=== PATIENT | female | born 1985 | race American Indian/Alaskan Native ===

== ENCOUNTER 2018-07-19 12:24 | Inpatient (IN) | payer BC ==
[2018-07-19] MEDS ORDERED: LACTATED RINGERS 1,000 ML IV SCH ×3 (13:00→18:00)
[2018-07-19] MEDS ORDERED: STADOL IV PRN (13:53)
[2018-07-19] MEDS ORDERED: NARCAN 0.4 MG/1 ML IV PRN ×3 (13:53→19:34)
[2018-07-19] MEDS ORDERED: MINERAL OIL PO PRN (13:53)
[2018-07-19] MEDS ORDERED: BRETHINE IVP PRN (13:53)
[2018-07-19] MEDS ORDERED: BRETHINE SUB-Q PRN (13:53)
[2018-07-19] MEDS ORDERED: PHENERGAN PO PRN ×2 (13:53→19:34)
[2018-07-19] MEDS ORDERED: ZOFRAN IV PRN ×2 (13:53→19:34)
[2018-07-19] MEDS ORDERED: SUBLIMAZE IV PRN (13:53)
--- NOTE | 2018-07-19 13:55 | History and Physical Report ---
History of Present Illness Date of examination: 07/19/18 Date of admission: 07/19/18 12:24 Chief complaint: iol for PIH History of present illness: This is a 33 yo at 39 weeks has been very non compliant. She was diagnosed last month with preeclampsia and signed out AMA on Jun. She has not been seen since then. She came for a visit today and noted to have a BP 160/112. She was sent to [facility] and [facility] for admission and evaluation. She is a patient transfer into care at 10 weeks. She has hx of low lying placneta and PIH. She has been on anti hypertensive meds for HTN. Past History Past Medical History: no pertinent history, other (endometriosis ) Past Surgical History: other (laproscopy and cystectomy ) Family/Genetic History: none Social history: single. denies: smoking, alcohol abuse, prescription drug abuse - Obstetrical History Expected Date of Delivery: 07/20/18 Actual Gestation: 39 Week(s) 6 Day(s) : 1 Para: 0 Hx # Term Pregnancies: 0 Number of Pregnancies: 0 Spontaneous Abortions: 0 Induced : 0 Number of Living Children: 0 Medications and Allergies Allergies Allergy/AdvReac Type Severity Reaction Status Date / Time No Known Allergies Allergy Verified 07/19/18 12:43 Home Medications Medication Instructions Recorded Confirmed Last Taken Type Labetalol [Normodyne TAB] 1 tab PO BID 07/01/18 07/01/18 07/01/18 18:00 History Pnv No.95/Ferrous Fum/Folic AC 1 tab PO DAILY 07/01/18 07/01/18 07/01/18 10:00 History [ Formula Tablet] Active Meds: Active Medications Lactated Ringer's (Lactated Ringers) 1,000 mls @ 125 mls/hr IV DIRECT DAVID Review of Systems All systems: negative - Vital Signs Vital signs: Vital Signs Pulse BP 102 H 159/96 07/19/18 13:41 07/19/18 13:41 Temp Pulse Resp BP Pulse Ox 97 F L 102 H 20 159/96 07/19/18 13:53 07/19/18 13:53 07/19/18 13:53 07/19/18 13:41 - Physical Exam Breasts: Positive: normal Cardiovascular: Regular rate, Normal S1 Abdomen: Positive: normal appearance, soft, normal bowel sounds. Negative: distention, tenderness, guarding Genitourinary (Female): Positive: normal external genitalia, normal perenium Vagina: Positive: normal moisture Uterus: Positive: normal size Anus/Rectum: Positive: normal perianal skin Extremities: Positive: normal Deep Tendon Reflex Grade: Normal +2 - Obstetrical FHR: category 1 Results All other labs normal. Assessment and Plan A/P IUP 39 weeks Preeclampsia iol for preeclampsia close monitor of and maternal status IVF, labs hx of low lying placenta needs US for BPP, doppler, location of placenta , EFW
[2018-07-19] MEDS ORDERED: PITOCin/NS 20 UNIT/1000ML DRIP 20 UNITS/1,000 ML BAG IV SCH ×3 (14:00→20:00)
[2018-07-19] MEDS ORDERED: PITOCin/NS 30 UNIT/500ML 30 UNITS/500 ML BAG IV SCH ×2 (14:00)
--- NOTE | 2018-07-19 14:55 | Consultation ---
History of Present Illness Consult date: 07/19/18 Requesting physician: SHIRLEY SMART Reason for consult: other (PIH, low lying placenta) History of present illness: This is a 33 yo at 39 weeks has been very non compliant and has been referred by Dr. Shirley Smart for PIH and elevated BP. Patient was previously followed by [facility] and delivery was recommended 06/20/18. She was noted to have elevated BP in her OBs office today with a BP 160/112. She has hx of low lying placneta and PIH. Past History Past Medical History: no pertinent history, other (endometriosis ) Past Surgical History: other (laproscopy and cystectomy ) Family/Genetic History: none - Obstetrical History : 1 Medications and Allergies Allergies Allergy/AdvReac Type Severity Reaction Status Date / Time No Known Allergies Allergy Verified 07/19/18 12:43 Home Medications Medication Instructions Recorded Confirmed Last Taken Type Labetalol [Normodyne TAB] 1 tab PO BID 07/01/18 07/01/18 07/01/18 18:00 History Pnv No.95/Ferrous Fum/Folic AC 1 tab PO DAILY 07/01/18 07/01/18 07/01/18 10:00 History [ Formula Tablet] Active Meds: Active Medications Butorphanol Tartrate (Stadol) 2 mg IV Q2H PRN PRN Reason: Pain , Severe (7-10) Ephedrine Sulfate (Ephedrine Sulfate) 10 mg IV Q2M PRN PRN Reason: Hypotension Fentanyl (Sublimaze) 100 mcg IV Q2H PRN PRN Reason: Labor Pain Lactated Ringer's (Lactated Ringers) 1,000 mls @ 125 mls/hr IV DIRECT DAVID Oxytocin/Sodium Chloride (Pitocin/Ns 20 Unit/1000ml Drip) 20 units in 1,000 mls @ 125 mls/hr IV DIRECT DAVID Oxytocin/Sodium Chloride (Pitocin/Ns 30 Unit/500ml) 30 units in 500 mls @ 1 mls/hr IV TITR DAVID; Protocol Oxytocin/Sodium Chloride (Pitocin/Ns 30 Unit/500ml) 30 units in 500 mls @ 0 mls/hr IV TITR DAVID; Protocol Magnesium Sulfate (Magnesium Sulfate 40gm/1000ml) 40 gm in 1,000 mls @ 50 mls/hr IV DIRECT DAVID Magnesium Sulfate (Magnesium Sulfate 4gm/100ml) 4 gm in 100 mls @ 300 mls/hr IV ONCE ONE Stop: 07/19/18 15:49 Labetalol HCl (Normodyne) 200 mg PO BID DAVID Lidocaine (Xylocaine 2%) 20 ml INFILTRATI ONCE ONE Stop: 07/19/18 15:01 Mineral Oil (Mineral Oil) 30 ml PO QHS PRN PRN Reason: Constipation Naloxone HCl (Narcan 0.4 Mg/1 Ml) 0.1 mg IV Q2MIN PRN PRN Reason: Res Rate </= 8 or 02 SAT < 92% Ondansetron HCl (Zofran) 4 mg IV Q8H PRN PRN Reason: Nausea And Vomiting Promethazine HCl (Phenergan) 25 mg PO Q6H PRN PRN Reason: Nausea And Vomiting Terbutaline Sulfate (Brethine) 0.25 mg SUB-Q ONCE PRN PRN Reason: Hyperstimulation/Hypertonicity Terbutaline Sulfate (Brethine) 0.25 mg IVP ONCE PRN PRN Reason: Hyperstimulation/Hypertonicity Review of Systems Eyes: deferred Ears, nose, mouth and throat: deferred (denies chest pain) Respiratory: other (denies shortness of breath) Breasts: deferred Gastrointestinal: other (denies abdominal pain, cramping/contractions) Genitourinary: other (denies leakage of fluid) - Vital Signs Vital signs: Vital Signs Pulse BP 102 H 159/96 07/19/18 13:41 07/19/18 13:41 Temp Pulse Resp BP Pulse Ox 97 F L 96 H 20 151/89 07/19/18 13:53 07/19/18 14:40 07/19/18 13:53 07/19/18 14:40 - Physical Exam Breasts: Positive: deferred Cardiovascular: Regular rate Lungs: Positive: Normal air movement Abdomen: Positive: normal appearance, other (gravid) Results All other labs normal. Assessment and Plan Assessment 39 weeks, SIUP Noncompliant with previous care and recommendations Hx PIH Elevated BP 150s/80s-90s Previous low lying placenta Recommendations We recommend delivery after ultrasound evaluation If placenta no longer low lying proceed with vaginal delivery unless otherwise contraindicated as earlier discussed with Dr. Pichardo 24 hour urine to evaluate for preeclampsia Treat with Magnesium Sulfate IV therapy as indicated for s/s of preeclampsia No further follow indicated for [facility]. Thank you for giving us the opportunity to participate in the care of this patient. For further questions or concerns please contact NOLAN scanlon MD. Thank you.
[2018-07-19] MEDS ORDERED: XYLOCAINE 2% INFILTRATI ONE (15:00)
[2018-07-19] MEDS ORDERED: MAGNESIUM SULFATE 4GM/100ML 4 GM/100 ML BAG IV ONE ×2 (15:30→19:39)
[2018-07-19 15:36] LABS: Hematocrit 35.7 % (30.3-42.9); Hemoglobin 11.8 gm/dl (10.1-14.3); Mean Corpuscular HGB Conc 33 % (30-34); Mean Corpuscular Volume 91 fl (79-97); Platelet Count 328 K/mm3 (140-440); Red Blood Count 3.94 M/mm3 (3.65-5.03); Red Cell Distribution Width 14.8 % (13.2-15.2)
[2018-07-19 15:57] LABS: Alanine Aminotransferase 34 units/L (7-56)
[2018-07-19 16:06] LABS: Bilirubin,Urine NEG (Negative); Blood,Urine NEG (Negative); Color,Urine Yellow (Yellow); Mucus,Urine FEW /HPF
[2018-07-19 16:21] LABS: Hematocrit 34.7 % (30.3-42.9); Mean Corpuscular HGB Conc 35 % (30-34); Mean Corpuscular Volume 90 fl (79-97); Platelet Count 331 K/mm3 (140-440); Red Blood Count 3.86 M/mm3 (3.65-5.03); Red Cell Distribution Width 15.2 % (13.2-15.2)
[2018-07-19] MEDS ORDERED: APRESOLINE IV PRN (16:35)
[2018-07-19] MEDS ORDERED: BICITRA PO ONE (17:05)
[2018-07-19] MEDS ORDERED: PEPCID IV ONE ×2 (17:05→17:21)
[2018-07-19] MEDS ORDERED: REGLAN IV ONE (17:05)
--- NOTE | 2018-07-19 17:05 | Event Note ---
Date: 07/19/18 Patient was noted to have tachy in 160-170s. Patient BP despite medication is 170/100s. It was decided after recommendations by myself to proceed with primary csec secondary to NRFHT and Preeclampsia uncontrolled. We discused bleeding infection, damage to pelvic and non pelvic organs, risk of blood clots, hysterectomy and . patient and both agree to proceed with csec .
[2018-07-19 17:06] LABS: Uric Acid 3.2 mg/dL (3.5-7.6)
--- NOTE | 2018-07-19 17:07 | Anesthesia Consultation ---
Anesthesia Consult and Med Hx Date of service: 07/19/18 - Airway Anesthetic Teeth Evaluation: Good ROM Head & Neck: Adequate Mental/Hyoid Distance: Adequate Mallampati Class: Class II Intubation Access Assessment: Probably Good - Pulmonary Exam CTA: Yes - Cardiac Exam Cardiac Exam: RRR - Pre-Operative Health Status ASA Pre-Surgery Classification: ASA3 Proposed Anesthetic Plan: Spinal Nerve Block: QL for post op pain control - Pulmonary Hx Asthma: No COPD: No Hx Pneumonia: No - Cardiovascular System Hx Hypertension: Yes (preclamptic) - Central Nervous System Hx Seizures: No Hx Psychiatric Problems: No - Gastrointestinal Hx Gastroesophageal Reflux Disease: No - Endocrine Hx Renal Disease: No Hx End Stage Renal Disease: No Hx Hypothyroidism: No Hx Hyperthyroidism: No - Hematic Hx Anemia: Yes Hx Sickle Cell Disease: No - Other Systems Hx Alcohol Use: No - Additional Comments Anesthesia Medical History Comments: pt preclamptic and will need a c sction. ate at 12 noon gastric scan reveals full stomach with frosted glass presentaion. Anes plan is spinal with normal platelet count. with delayed gastropuresis, waiting will not change risk benefit for needed, urgent, delivery.
[2018-07-19] MEDS ORDERED: BICITRA ONE (17:20)
--- NOTE | 2018-07-19 17:42 | Ultrasound Report ---
FINAL REPORT EXAM: US OB BPP WO NON-STRESS HISTORY: elevated b/p TECHNIQUE: Ultrasound biophysical profile PRIORS: None. FINDINGS: Single live intrauterine gestation is present with heart rate of 178 beats per minute Biophysical profile was performed respiratory motion 2 Body movement 2 tone 2 Amniotic fluid volume 2 Total 02/13 Impression Normal biophysical profile 02/13
--- NOTE | 2018-07-19 17:49 | Ultrasound Report ---
FINAL REPORT EXAM: US OB FOLLOW UP HISTORY: elevated b/p TECHNIQUE: Ultrasound obstetrical transabdominal PRIORS: Correlated with prior exam July 02, 2018 FINDINGS: Single live intrauterine gestation present cephalic position Placenta is right and lateral and grade 2 Amniotic fluid is within normal limits amniotic fluid index 11.5 centimeters cardiac activity is present with heart rate of 178 beats per minute Cervical length 3.2 centimeters biometric measurements were obtained Biparietal diameter 30 weeks 2 days Head circumference 39 weeks 6 days Abdominal circumference 41 weeks 2 days Femur length 35 weeks 6 days Based on today's exam estimated gestational age is 38 weeks 6 days with estimated date of delivery [facility] 2018 Estimated weight today is 3853 grams, 8 pounds 8 ounces. 71 percentile for dates IMPRESSION: Single live intrauterine gestation estimated at 38 weeks 6 days
[2018-07-19] MEDS ORDERED: NACL 0.9% IR ONE (17:55)
[2018-07-19] MEDS ORDERED: WATER FOR IRRIG STERILE IR ONE (17:55)
[2018-07-19] MEDS ORDERED: SENOKOT PO PRN (19:02)
[2018-07-19] MEDS ORDERED: PHENERGAN PR PRN ×2 (19:02→19:34)
[2018-07-19] MEDS ORDERED: ANUCORT-HC PR PRN (19:02)
[2018-07-19] MEDS ORDERED: TORADOL IV PRN ×2 (19:02)
[2018-07-19] MEDS ORDERED: LANSINOH TP PRN (19:02)
[2018-07-19] MEDS ORDERED: MYLICON PO PRN (19:02)
[2018-07-19] MEDS ORDERED: TUCKS PAD TP PRN (19:02)
[2018-07-19] MEDS ORDERED: MORPHINE IV PRN ×2 (19:02)
--- NOTE | 2018-07-19 19:08 | Procedure Note ---
OB Delivery Note - Delivery Date of Delivery: 07/19/18 Surgeon: FOREST FINNEGAN Estimated blood loss: other (600cc) - Section Preop diagnosis: nonreassuring FHR tracing, other (severe preeclampsia ) section procedure: section Disposition: PACU Complications: none - Infant A at 1 minute: 8 at 5 minutes: 9 Gender: Female (9 pounds 3 oz)
--- NOTE | 2018-07-19 19:11 | Operative Report ---
Operative Report Operative Report: DATE OF OPERATION: 07/19/18 PREOPERATIVE DIAGNOSES: 1. Intrauterine gestation at 39+6 weeks 2. Severe Preeclampsia 3. NRFHT with tachycardia POSTOPERATIVE DIAGNOSES: 1-3 shahana OPERATION PERFORMED: Primary low transverse section. SURGEON: Shirley Smart MD ANESTHESIA: Spinal COMPLICATIONS: None. ESTIMATED BLOOD LOSS: 600 mL. DRAINS: Christensen catheter to the bladder. SPECIMENS TO PATHOLOGY: Cord blood for routine testing. OPERATIVE FINDINGS: A viable female with Apgars of 8 and 9 and birthweight of 9 pounds 3 ounces was delivered from a cephalic presentation, persistent occiput posterior position. The cord contained 3 vessels. There was normal anterior fundal placenta. The amniotic fluid was clear. The uterus, fallopian tubes and ovaries were normal. DESCRIPTION OF OPERATION: The patient was brought to the operating suite in stable condition with epidural anesthesia on board and an indwelling catheter in place in the bladder. The patient was placed supine on the operating room table and rolled to her left side with a wedge. The abdomen was prepped and draped in standard fashion for section. After testing with forceps to assure an adequate anesthetic level, the surgery was commenced. We had counseled the patient extensively regarding the risks of the surgery including but not limited to stroke, embolus, phlebitis, pain, infection, hemorrhage, as well as injury to the and the internal organs such as the bowel, bladder, blood vessels, nerves, kidneys, ureters and pelvic organs. The patient was aware of the postoperative morbidity issues and recovery timeframes. The patient was aware she can form adhesions, which can result in obstruction of loop of bowel or ureter or chronic pain. She was aware that should she have hemorrhage and require blood transfusion, there was a small chance for exposure to hepatitis or HIV disease. With the scalpel, a Pfannenstiel skin incision was made. Dissection was carried down sharply through the subcutaneous tissues and fascia in a transverse plane with the scalpel, electrocautery and curved Baker scissors. The fascia was sharply freed up superiorly and inferiorly from the underlying rectus muscles, which were bluntly and sharply divided. The peritoneum was entered carefully in a clear space with a curved hemostat. The peritoneal incision was then extended vertically with Metzenbaum scissors. A retractor and bladder blade were placed. A bladder flap was created by incising transversely through the peritoneum and vesicouterine fold and then bluntly dissecting the bladder distally. With the scalpel, a low transverse hysterotomy was commenced. The serosa and myometrium were scored with the scalpel. The uterine cavity was actually entered bluntly with a curved hemostat. The uterine incision was then extended laterally with the book sewing machine operator's fingers. An intrauterine hand was placed and the head of the infant was brought up out of the pelvis into the uterine incision. With fundal pressure, he was delivered without difficulty. The nasopharynx and oropharynx were suctioned. The cord was doubly clamped and transected. The infant was then handed off to the nursery personnel. Apgars were good at 8 and 9. A cord pH was obtained, which subsequently revealed a normal value. Further cord blood was collected for routine testing. Intravenous Pitocin and antibiotics were administered. The placenta was manually removed. The uterine cavity was then curetted with a dry sponge and freed of the remaining membranes. The edges of the uterine incision were grasped with Turner clamps. With the massage and the Pitocin, the uterus began to firm up normally. The uterine incision was then closed in 2 layers of 0 Vicryl sutures. The first suture was placed to the endometrium and myometrium. The second suture was placed through the endopelvic fascia and also reincorporated the bladder flap peritoneum. Peritoneal lavage was then performed. The pelvis and gutters were irrigated and suctioned and cleared of all blood and clots and amniotic fluid. The uterine incision was reinspected to assure hemostasis. The uterus, tubes and ovaries were inspected and were normal. Once we were satisfied with the hemostasis, attention was turned to closure of the abdominal incision. The peritoneum, muscles and fascia were closed in layers using 0-Vicryl sutures. The subcutaneous tissue was closed with 3-0 plain sutures. The skin was closed with a subcuticular suture of 4-0 Vicryl followed by benzoin, Steri-Strips and a Telfa dressing. The patient was moved to the recovery room in stable condition with the Christensen catheter draining clear urine. Instruments, sponge and needle counts were reported as correct. Estimated blood loss was 600 mL. There were no complications.
[2018-07-19] MEDS ORDERED: D5LR 1,000 ML IV SCH (20:00)
[2018-07-19] MEDS ORDERED: SODIUM CHLORIDE FLUSH SYRINGE 10 ML IV SCH (20:00)
[2018-07-19] MEDS ORDERED: fentaNYL-BUPIV 2 MCG/ML-0.125% 200 MCG/100 ML BAG EPIDURAL SCH (20:00)
[2018-07-19] MEDS: MAGNESIUM SULFATE 40GM/1000ML 40 GM/1,000 ML BAG IV SCH (20:17)
[2018-07-19] MEDS: NORMODYNE PO SCH (21:03)
[2018-07-19] MEDS: NORCO 5/325 PO PRN (21:09)
[2018-07-20] MEDS ORDERED: BOOSTRIX IM ONE (06:00)
--- NOTE | 2018-07-20 07:39 | Progress Note ---
Assessment and Plan A/P POD1 severe pree on mag last level within normal range continue mag infusion for 24 hrs then transfer to [facility] continue labetolol 200 mg po bid Subjective - Subjective Date of service: 07/20/18 Principal diagnosis: primary csec and severe preeclampsia Interval history: This is a 33 yo at 39 weeks has been very non compliant. She was diagnosed last month with preeclampsia and signed out AMA on Jun. She has not been seen since then. She came for a visit today and noted to have a BP 160/112. She was sent to L and d for admission and evaluation. She is a patient transfer into care at 10 weeks. She has hx of low lying placneta and PIH. She has been on anti hypertensive meds for HTN. Patient reports: appetite normal, voiding normally, pain well controlled Iva: doing well Objective - Vital Signs Latest vital signs: Vital Signs Temp Pulse Resp BP BP Pulse Ox 07/20/18 07:34 93 H 147/82 07/20/18 07:32 93 H 98 07/20/18 07:30 94 H 88 07/20/18 07:27 100 H 98 07/20/18 07:22 89 97 07/20/18 07:19 91 H 146/80 07/20/18 07:17 91 H 97 07/20/18 07:12 95 H 99 07/20/18 07:07 92 H 99 07/20/18 07:04 93 H 140/80 07/20/18 07:02 92 H 99 07/20/18 06:57 92 H 99 07/20/18 06:52 93 H 99 07/20/18 06:49 90 139/79 07/20/18 06:47 93 H 99 07/20/18 06:42 91 H 99 07/20/18 06:37 98 H 97 07/20/18 06:34 100 H 140/82 94 07/20/18 06:32 97 H 97 07/20/18 06:27 92 H 97 07/20/18 06:22 95 H 96 07/20/18 06:19 95 H 137/84 94 07/20/18 06:17 95 H 97 07/20/18 06:12 96 H 98 07/20/18 06:07 97 H 97 07/20/18 06:04 94 H 137/82 137/82 07/20/18 06:03 99 H 85 07/20/18 06:02 96 H 97 07/20/18 05:57 92 H 95 07/20/18 05:52 91 H 95 07/20/18 05:49 90 130/75 07/20/18 05:47 94 H 95 07/20/18 05:42 91 H 95 07/20/18 05:37 91 H 96 07/20/18 05:34 90 130/76 07/20/18 05:32 92 H 96 07/20/18 05:27 91 H 96 07/20/18 05:22 92 H 96 07/20/18 05:19 90 138/82 94 07/20/18 05:17 91 H 96 07/20/18 05:12 93 H 96 07/20/18 05:07 91 H 96 07/20/18 05:04 96 H 138/81 138/81 07/20/18 05:02 89 96 07/20/18 04:57 91 H 97 07/20/18 04:52 88 96 07/20/18 04:49 90 141/79 07/20/18 04:47 90 98 07/20/18 04:42 93 H 98 07/20/18 04:37 97 H 98 07/20/18 04:34 100 H 155/81 91 07/20/18 04:32 98 H 97 07/20/18 04:27 98 H 98 07/20/18 04:23 71 94 07/20/18 04:22 100 H 98 07/20/18 04:19 95 H 141/74 07/20/18 04:16 92 H 98 07/20/18 04:11 95 H 97 07/20/18 04:06 93 H 98 07/20/18 04:04 94 H 143/81 143/81 07/20/18 04:01 95 H 99 07/20/18 03:56 96 H 98 07/20/18 03:51 94 H 98 07/20/18 03:49 98 H 138/80 07/20/18 03:46 94 H 96 07/20/18 03:41 96 H 97 07/20/18 03:36 96 H 96 07/20/18 03:34 97 H 136/81 07/20/18 03:31 95 H 97 07/20/18 03:26 90 95 07/20/18 03:21 95 H 95 07/20/18 03:19 91 H 139/85 94 07/20/18 03:16 94 H 96 07/20/18 03:11 94 H 96 07/20/18 03:06 96 H 95 07/20/18 03:04 95 H 139/87 139/87 07/20/18 03:01 95 H 96 07/20/18 02:56 94 H 98 07/20/18 02:51 95 H 98 07/20/18 02:49 94 H 136/81 07/20/18 02:46 93 H 99 07/20/18 02:41 96 H 99 07/20/18 02:36 95 H 98 07/20/18 02:34 94 H 134/78 07/20/18 02:31 94 H 98 07/20/18 02:26 92 H 99 07/20/18 02:21 93 H 99 07/20/18 02:19 93 H 139/81 07/20/18 02:16 92 H 98 07/20/18 02:11 92 H 99 07/20/18 02:06 95 H 99 07/20/18 02:04 96 H 138/76 138/76 07/20/18 02:01 95 H 98 07/20/18 01:56 97 H 97 07/20/18 01:51 97 H 98 07/20/18 01:49 96 H 138/77 07/20/18 01:46 99 H 97 07/20/18 01:41 97 H 97 07/20/18 01:36 98 H 97 07/20/18 01:34 96 H 133/78 07/20/18 01:31 98 H 97 07/20/18 01:26 99 H 97 07/20/18 01:21 99 H 97 07/20/18 01:19 98 H 133/84 07/20/18 01:16 93 H 99 07/20/18 01:11 97 H 97 07/20/18 01:06 95 H 97 07/20/18 01:04 97 H 132/79 132/79 07/20/18 01:01 99 H 97 07/20/18 00:56 100 H 98 07/20/18 00:51 100 H 97 07/20/18 00:49 100 H 138/86 07/20/18 00:46 98 H 98 07/20/18 00:41 101 H 98 07/20/18 00:36 101 H 97 07/20/18 00:34 99 H 131/75 131/75 07/20/18 00:31 100 H 97 07/20/18 00:26 100 H 98 07/20/18 00:21 99 H 98 07/20/18 00:19 94 H 140/76 07/20/18 00:16 94 H 97 07/20/18 00:11 97 H 97 07/20/18 00:06 94 H 97 07/20/18 00:04 98.8 F 95 H 136/75 136/75 07/20/18 00:01 99 H 97 07/19/18 23:56 96 H 97 07/19/18 23:51 96 H 97 07/19/18 23:49 96 H 136/73 07/19/18 23:46 98 H 98 07/19/18 23:41 97 H 97 07/19/18 23:36 98 H 97 07/19/18 23:34 97 H 131/72 131/72 07/19/18 23:31 99 H 96 07/19/18 23:26 99 H 97 07/19/18 23:21 99 H 96 07/19/18 23:19 102 H 131/72 07/19/18 23:16 100 H 96 07/19/18 23:11 97 H 96 07/19/18 23:06 94 H 96 07/19/18 23:04 97 H 139/76 07/19/18 23:01 95 H 99 07/19/18 22:56 98 H 99 07/19/18 22:51 96 H 98 07/19/18 22:49 95 H 136/78 07/19/18 22:46 94 H 98 07/19/18 22:41 96 H 99 07/19/18 22:36 96 H 98 07/19/18 22:34 94 H 137/79 07/19/18 22:31 95 H 99 07/19/18 22:26 93 H 98 07/19/18 22:21 95 H 98 07/19/18 22:19 96 H 148/84 148/84 07/19/18 22:16 94 H 98 07/19/18 22:11 98 H 98 07/19/18 22:06 102 H 97 07/19/18 22:04 100 H 149/83 149/83 07/19/18 22:01 101 H 99 07/19/18 21:56 96 H 99 07/19/18 21:51 99 H 99 07/19/18 21:49 96 H 157/89 157/89 07/19/18 21:46 101 H 99 07/19/18 21:41 99 H 100 07/19/18 21:36 94 H 100 07/19/18 21:34 90 154/95 154/95 07/19/18 21:31 99 H 100 07/19/18 21:26 95 H 100 07/19/18 21:21 92 H 100 07/19/18 21:19 122 H 158/98 158/98 07/19/18 21:16 100 H 100 07/19/18 21:11 96 H 100 07/19/18 21:06 98 H 100 07/19/18 21:04 96 H 150/93 150/93 07/19/18 21:03 96 H 150/93 07/19/18 21:01 96 H 100 07/19/18 20:56 98 H 100 07/19/18 20:49 92 H 150/93 07/19/18 20:34 91 H 156/99 07/19/18 20:16 98.6 F 94 H 22 145/93 99 07/19/18 20:01 97 H 15 143/89 98 07/19/18 19:46 98 H 12 133/88 99 07/19/18 19:31 95 H 13 138/83 99 07/19/18 19:26 101 H 17 146/76 99 07/19/18 19:21 96 H 20 122/68 100 07/19/18 19:16 98.6 F 98 H 19 128/59 100 07/19/18 17:27 97 H 159/94 07/19/18 17:11 105 H 184/104 07/19/18 17:00 171/106 07/19/18 16:55 93 H 171/106 07/19/18 16:40 96 H 176/111 07/19/18 16:26 96 H 175/103 07/19/18 15:56 93 H 159/102 07/19/18 15:41 95 H 141/89 07/19/18 15:26 97 H 144/79 07/19/18 15:10 99 H 151/87 07/19/18 14:56 101 H 156/93 07/19/18 14:40 96 H 151/89 07/19/18 14:25 97 H 151/83 07/19/18 14:10 97 H 150/85 07/19/18 13:56 103 H 156/91 07/19/18 13:53 97 F L 102 H 20 07/19/18 13:41 102 H 159/96 Intake and Output 07/19/18 07/19/18 07/20/18 15:59 23:59 07:59 Intake Total 175 Output Total 600 2200 Balance -425 -2200 Intake: IV 175 Output: Urine 600 2200 Void 500 2200 Other: Total, Output Amount 500 600 Weight 86.183 kg Estimated Blood Loss 600 - Exam Breasts: Present: normal Cardiovascular: Present: Regular rate, Normal S1 Lungs: Present: Clear to auscultation, Normal air movement Abdomen: Present: normal appearance, soft, normal bowel sounds. Absent: distention, tenderness, guarding Vulva: both: normal Uterus: Present: normal, firm, fundal height below umbilicus. Absent: bogginess, tenderness Extremities: Present: normal Deep Tendon Reflex Grade: Normal +2 Incision: Present: normal - Labs Labs: Abnormal lab results 07/19/18 07/19/18 07/19/18 Range/Units 15:00 15:15 15:15 MCHC 35 H (30-34) % Creatinine 0.4 L (0.7-1.2) mg/dL Uric Acid 3.2 L (3.5-7.6) mg/dL Magnesium (1.7-2.3) mg/dL AST 47 H (5-40) units/L Lactate Dehydrogenase 252 H (91-180) units/L U Epithel Cells (Auto) 23.0 H (0-13.0) /HPF 07/20/18 Range/Units 01:13 MCHC (30-34) % Creatinine (0.7-1.2) mg/dL Uric Acid (3.5-7.6) mg/dL Magnesium 4.10 H (1.7-2.3) mg/dL AST (5-40) units/L Lactate Dehydrogenase (91-180) units/L U Epithel Cells (Auto) (0-13.0) /HPF
[2018-07-20 08:29] LABS: Hematocrit 36.1 % (30.3-42.9); Hemoglobin 11.8 gm/dl (10.1-14.3)
[2018-07-20] MEDS: NORCO 5/325 PO PRN ×2 (08:51→16:33)
[2018-07-20] MEDS: NORMODYNE PO SCH ×3 (09:30→22:56)
[2018-07-20] MEDS: FEOSOL PO SCH (09:31)
[2018-07-20] MEDS: PRENATAL VITAMIN PO SCH (09:32)
[2018-07-20] MEDS: PERCOCET 5/325 PO PRN ×2 (13:11→20:33)
[2018-07-20] MEDS: MAGNESIUM SULFATE 40GM/1000ML 40 GM/1,000 ML BAG IV SCH (16:32)
[2018-07-20] MEDS ORDERED: M-M-R II VACCINE SUB-Q ONE (19:04)
[2018-07-21] MEDS: IBUPROFEN PO PRN ×4 (00:26→22:07)
[2018-07-21] MEDS: PERCOCET 5/325 PO PRN ×4 (02:29→22:07)
[2018-07-21] MEDS: NORCO 5/325 PO PRN (06:49)
--- NOTE | 2018-07-21 07:01 | Progress Note ---
Assessment and Plan A/P POD2 severe pree s/p on mag- d/c last night continue labetolol 200 mg po bid VSS BP normal condiser d/c home tomorrow Subjective - Subjective Date of service: 07/21/18 Principal diagnosis: primary csec and severe preeclampsia Interval history: This is a 33 yo at 39 weeks has been very non compliant. She was diagnosed last month with preeclampsia and signed out AMA on Jun. She has not been seen since then. She came for a visit today and noted to have a BP 160/112. She was sent to [facility] for admission and evaluation. She is a patient transfer into care at 10 weeks. She has hx of low lying placneta and PIH. She has been on anti hypertensive meds for HTN. Patient reports: appetite normal, voiding normally, pain well controlled, flatus, ambulating normally : doing well Objective - Vital Signs Latest vital signs: Vital Signs Temp Pulse Resp BP BP Pulse Ox 07/21/18 06:49 16 07/21/18 02:29 22 07/21/18 00:26 18 07/20/18 23:30 98.7 F 73 16 130/74 07/20/18 22:56 82 138/86 07/20/18 20:33 22 07/20/18 19:22 95 H 150/88 07/20/18 19:05 93 H 120/82 07/20/18 19:04 96.9 F L 93 H 18 120/82 07/20/18 18:21 88 122/76 07/20/18 17:21 90 139/77 07/20/18 16:33 16 07/20/18 16:28 97.9 F 16 07/20/18 16:19 96 H 129/79 07/20/18 16:04 96 H 134/89 07/20/18 15:49 93 H 133/77 07/20/18 15:34 97 H 141/82 07/20/18 15:19 93 H 134/93 07/20/18 15:04 92 H 135/103 07/20/18 14:49 93 H 134/81 07/20/18 14:34 93 H 130/71 07/20/18 14:19 96 H 135/80 07/20/18 14:04 92 H 137/76 07/20/18 13:49 96 H 142/78 07/20/18 13:34 92 H 140/83 07/20/18 13:19 93 H 134/84 07/20/18 13:04 95 H 124/79 07/20/18 12:49 93 H 155/86 07/20/18 12:34 93 H 116/55 07/20/18 12:19 90 116/71 07/20/18 12:04 87 111/56 07/20/18 11:49 89 109/57 07/20/18 11:34 93 H 112/58 07/20/18 11:19 93 H 117/72 07/20/18 11:04 94 H 124/67 07/20/18 10:49 86 120/69 07/20/18 10:34 89 140/81 07/20/18 10:19 90 138/85 07/20/18 10:04 97 H 147/92 07/20/18 09:51 16 07/20/18 09:49 97 H 162/98 07/20/18 09:44 98.5 F 94 H 16 153/97 07/20/18 09:34 94 H 153/97 07/20/18 09:30 151/86 07/20/18 09:19 96 H 151/86 07/20/18 09:04 149/86 07/20/18 08:49 94 H 146/83 07/20/18 08:34 92 H 124/62 07/20/18 08:19 93 H 142/84 07/20/18 08:07 97 H 98 07/20/18 08:04 91 H 142/83 07/20/18 08:02 94 H 98 07/20/18 07:57 94 H 98 07/20/18 07:52 90 98 07/20/18 07:49 92 H 149/89 07/20/18 07:47 91 H 99 07/20/18 07:42 97 H 96 07/20/18 07:37 92 H 98 07/20/18 07:34 93 H 147/82 07/20/18 07:32 93 H 98 07/20/18 07:30 94 H 88 07/20/18 07:27 100 H 98 07/20/18 07:22 89 97 07/20/18 07:19 91 H 146/80 07/20/18 07:17 91 H 97 07/20/18 07:12 95 H 99 07/20/18 07:07 92 H 99 07/20/18 07:04 93 H 140/80 07/20/18 07:02 92 H 99 Intake and Output 07/20/18 07/20/18 07/21/18 15:59 23:59 07:59 Intake Total 1501.667 Output Total 2800 400 Balance -1298.333 -400 Intake: IV 1261.667 MAGNESIUM SULFATE 40GM/ 1161.667 1000ML 40 gm In 1,000 ml @ 2 GM/HR 50 mls/hr IV DIRECT DAVID Rx#:[id number] MAGNESIUM SULFATE 4GM/ 100 100ML 4 gm In 100 ml @ 300 mls/hr IV ONCE ONE Rx #:[id number] Oral 240 Output: Urine 2800 400 Void 2800 400 Other: Total, Intake Amount 240 Total, Output Amount 800 400 # Voids Void 1 - Exam Breasts: Present: normal Cardiovascular: Present: Regular rate, Normal S1 Lungs: Present: Clear to auscultation, Normal air movement Abdomen: Present: normal appearance, soft, normal bowel sounds. Absent: distention, tenderness, guarding Vulva: both: normal Uterus: Present: normal, firm, fundal height below umbilicus. Absent: bogginess, tenderness Extremities: Present: normal Deep Tendon Reflex Grade: Normal +2 Incision: Present: normal, dry, dressed - Labs Labs: Abnormal lab results 07/20/18 Range/Units 07:28 Magnesium 4.80 H (1.7-2.3) mg/dL
[2018-07-21] MEDS: FEOSOL PO SCH (10:26)
[2018-07-21] MEDS: PRENATAL VITAMIN PO SCH (10:26)
[2018-07-21] MEDS: NORMODYNE PO SCH ×2 (10:36→21:29)
[2018-07-21] MEDS: MILK OF MAGNESIA PO PRN (21:34)
[2018-07-22] MEDS: PERCOCET 5/325 PO PRN ×3 (07:50→21:53)
[2018-07-22] MEDS: IBUPROFEN PO PRN ×3 (07:52→21:54)
[2018-07-22] MEDS: FEOSOL PO SCH ×2 (07:53→10:17)
--- NOTE | 2018-07-22 08:11 | Progress Note ---
Assessment and Plan - Patient Problems (1) Mild preeclampsia Current Visit: No Status: Acute Plan to address problem: will increase labetalol dose to 400mg bid postpone discharge until tomorrow Subjective - Subjective Date of service: 07/22/18 Principal diagnosis: primary csec and severe preeclampsia Interval history: Patient has had labile blood pressures. She reports not being able to have a bowel movement. She is tolerating a regular diet. Infant scheduled to be discharged tomorrow. Patient reports: appetite normal, voiding normally, no bowel movement Objective - Vital Signs Latest vital signs: Vital Signs Temp Pulse Resp BP BP Pulse Ox 07/22/18 05:25 98.0 F 81 18 154/84 93 07/22/18 01:17 98.2 F 89 18 126/70 99 07/21/18 21:29 104 H 167/89 07/21/18 20:57 98.6 F 108 H 20 167/89 97 07/21/18 16:38 98.2 F 92 H 18 167/61 07/21/18 10:36 139/91 Intake and Output 07/21/18 07/22/18 07/22/18 22:59 06:59 14:59 Intake Total 480 480 Balance 480 480 Intake: Oral 480 120 Intake, Free Water 360 Other: Total, Intake Amount 480 120 # Voids Void 2 - Exam Abdomen: Present: soft, distention (mild)
[2018-07-22] MEDS ORDERED: DULCOLAX PR PRN (10:00)
[2018-07-22] MEDS: NORMODYNE PO SCH ×2 (10:16→21:46)
[2018-07-22] MEDS: PRENATAL VITAMIN PO SCH (10:17)
[2018-07-22] MEDS: MILK OF MAGNESIA PO PRN (14:43)
[2018-07-22] MEDS ORDERED: MINERAL OIL ONE (15:18)
[2018-07-23] MEDS: PERCOCET 5/325 PO PRN ×2 (03:50→10:33)
[2018-07-23] MEDS: IBUPROFEN PO PRN ×2 (03:51→10:33)
--- NOTE | 2018-07-23 08:57 | Progress Note ---
Assessment and Plan A/P POD4 severe pree s/p on mag- d/c last night continue labetolol 200 mg po bid VSS BP normal BP 130-140/80s with increase in labetolol d/c home with f/u in 1 week for BP check Subjective - Subjective Date of service: 07/23/18 Principal diagnosis: primary csec and severe preeclampsia Interval history: This is a 33 yo at 39 weeks has been very non compliant. She was diagnosed last month with preeclampsia and signed out AMA on Jun. She has not been seen since then. She came for a visit today and noted to have a BP 160/112. She was sent to [facility] for admission and evaluation. She is a patient transfer into care at 10 weeks. She has hx of low lying placneta and PIH. She has been on anti hypertensive meds for HTN. Patient reports: appetite normal, voiding normally, pain well controlled, flatus, ambulating normally : doing well Objective - Vital Signs Latest vital signs: Vital Signs Temp Pulse Resp BP BP Pulse Ox 07/23/18 07:38 97.5 F L 85 16 138/87 99 07/23/18 03:51 18 07/23/18 03:50 18 07/23/18 03:41 97.7 F 84 16 138/89 07/23/18 00:25 98.3 F 89 18 143/74 07/22/18 22:54 20 07/22/18 22:53 20 07/22/18 22:10 98.2 F 92 H 18 146/87 07/22/18 21:54 20 07/22/18 21:53 20 07/22/18 21:46 86 130/80 07/22/18 15:35 97.9 F 91 H 18 137/78 07/22/18 12:38 94 H 18 141/95 07/22/18 10:16 129/80 Intake and Output 07/22/18 07/23/18 07/23/18 23:59 07:59 15:59 Intake Total 240 240 Balance 240 240 Intake: Intake, Free Water 240 240 Other: # Voids Void 1 1 - Exam Breasts: Present: normal Cardiovascular: Present: Regular rate, Normal S1 Lungs: Present: Clear to auscultation, Normal air movement Abdomen: Present: normal appearance, soft, normal bowel sounds. Absent: distention, tenderness Vulva: both: normal Uterus: Present: normal, firm, fundal height below umbilicus. Absent: bogginess, tenderness Extremities: Present: normal Deep Tendon Reflex Grade: Normal +2 Incision: Present: normal, dry, intact
--- NOTE | 2018-07-23 09:00 | Discharge Summary ---
Providers - Providers Date of Admission: 07/19/18 12:24 Date of discharge: 07/23/18 Attending physician: FOREST FINNEGAN MD 07/19/18 14:29 Consult to Physician [CONS] Urgent Comment: Consulting Provider: RYAN DOS SANTOS Physician Instructions: Reason For Exam: [facility] Primary care physician: FOREST FINNEGAN MD Hospitalization Reason for admission: induction of labor Delivery: Procedure: section Episiotomy: none Laceration: none Incision: normal, dry, intact complications: none Discharge diagnosis: IUP at term delivered baby: female Hospital course: johny was admitted for IOL. Patient had NRFHT with severe preeclampsia. performed. Mag for 24 hrs. Maintained PP on labetolol 400 mg po bid. met requirement for discharge with f/u of BP in 1 week Condition at discharge: Good Disposition: DC- TO HOME OR SELFCARE Plan - Discharge Medications Prescriptions: Ferrous Sulfate 325 mg PO BID #60 tablet. Ibuprofen [Motrin] 600 mg PO Q8H PRN #30 tablet PRN Reason: Pain Labetalol [Normodyne TAB] 200 mg PO BID #60 tablet Labetalol [Normodyne TAB] 400 mg PO BID #60 tablet Labetalol [Normodyne TAB] 400 mg PO BID #60 tablet oxyCODONE /ACETAMINOPHEN [Percocet 5/325] 1 tab PO Q6HR PRN #30 tablet PRN Reason: Pain - Provider Discharge Summary Activity: routine, no sex for 6 weeks, no strenuous exercise Diet: routine Instructions: routine Additional instructions: [] Smoking cessation referral if applicable(refer to patient education folder for contact #) [] Refer to [facility] Booklet Call your doctor immediately for: * Fever > 100.5 * Heavy vaginal bleeding ( >1 pad per hour) * Severe persistent headache * Shortness of breath * Reddened, hot, painful area to leg or breast * Drainage or odor from incision. * Keep incision clean and dry at all times and follow doctor's instructions regarding bathing/showering - Follow up plan Follow up: FOREST FINNEGAN MD [Primary Care Provider] - 7 Days
[2018-07-23] MEDS: PRENATAL VITAMIN PO SCH (10:32)
[2018-07-23] MEDS: NORMODYNE PO SCH (10:32)
[2018-07-23] MEDS: FEOSOL PO SCH (10:32)
[2018-07-23 10:36] VITALS: BP 140/70
== END 2018-07-23 14:30 | disposition home or self-care (01) | DRG 788 ==
LOC: LD 12:24 → OB 07-20 20:23
PROVIDERS: ADMIT Obstetrics & Gynecology; ATTEND Obstetrics & Gynecology
PROC: 10D00Z1 Extraction of Products of Conception, Low, Open Approach (ICD-10-PCS; principal; 2018-07-19)
PROC: 3E0234Z Introduction of Serum, Toxoid and Vaccine into Muscle, Percutaneous Approach (ICD-10-PCS; 2018-07-20)
DX: O14.14 Severe pre-eclampsia complicating childbirth (principal); O76 Abnormality in fetal heart rate and rhythm complicating labor and delivery; Z3A.39 39 weeks gestation of pregnancy; Z37.0 Single live birth; Z23 Encounter for immunization; Z91.19 Patient's noncompliance with other medical treatment and regimen
CPT/HCPCS: 36415; 76816; 76819; 81001; 82565; 83615; 83735; 84450; 84460; 84550; 85014; 85018; 85027; 86592; 86850; 86900; 86901; 90707; G0378; A6250; C9250; J0360; J2590; J2765; J3475; J7120; J7121; Q0169